=== PATIENT | male | born 1975 | race Hispanic/Latino ===

== ENCOUNTER 2017-01-10 22:37 | Emergency (ER) | payer BC ==
[2017-01-10 22:50] VITALS: RESP 18
[2017-01-10] MEDS ORDERED: Naproxen 550 mg Tab PO STA (23:12)
--- NOTE | 2017-01-10 23:13 | C.PDOC ---
History Of Present Illness 41 y/o male with a hx of head injury, c/o headache and nausea for a months. Patient changed his date of symptom onset from 3 days to a month. Denies visual changes, photophobia, or neck pain. No weakness, dizziness, or LOC. - HPI Time Seen by Provider: 01/10/17 23:06 Chief Complaint (Nursing): Trauma History Per: Patient History/Exam Limitations: no limitations Onset/Duration Of Symptoms: Days (3) Severity: Mild Recent travel outside of the [place]: No Additional History Per: Patient Past Medical History Reviewed: Historical Data, Nursing Documentation, Vital Signs Vital Signs: Last Vital Signs Temp 97.4 F L 01/10/17 22:46 Pulse 82 01/10/17 22:46 Resp 18 01/10/17 22:46 BP 136/84 01/10/17 22:46 Pulse Ox 98 01/11/17 00:11 Family History: States: Unknown Family Hx - Social History Hx Alcohol Use: No Hx Substance Use: No - Immunization History Hx Tetanus Toxoid Vaccination: No Hx Influenza Vaccination: No Hx Pneumococcal Vaccination: No Review Of Systems Except As Marked, All Systems Reviewed And Found Negative. Constitutional: Negative for: Other (Head injury) Eyes: Negative for: Vision Change, Other (Photophobia) Gastrointestinal: Positive for: Nausea Musculoskeletal: Negative for: Neck Pain Neurological: Positive for: Headache. Negative for: Weakness, Dizziness, Other (LOC) Physical Exam - Physical Exam Appears: Non-toxic, No Acute Distress Skin: Warm, Dry Head: Atraumatic, Normacephalic, Tenderness (Mild tenderness to the left temporoparietal area) Eye(s): bilateral: Normal Inspection, PERRL, EOMI Neck: Normal ROM, Supple Cardiovascular: Rhythm Regular, No Murmur Respiratory: Normal Breath Sounds, No Rales, No Rhonchi, No Wheezing Neurological/Psych: Oriented x3, Normal Speech, Normal Cognition, Normal Cranial Nerves, No Cerebellar Signs, Normal Motor, Normal Sensation, Other (No focal deficit) Gait: Steady ED Course And Treatment O2 Sat by Pulse Oximetry: 98 (RA) Pulse Ox Interpretation: Normal Medical Decision Making Medical Decision Making: Impression: * Headache and nausea for 3 days. Plans: * CT Head w/o * Anaprox Disposition Counseled Patient/Family Regarding: Diagnosis - Disposition Referrals: [facility] [Outside] Disposition: HOME/ ROUTINE Disposition Time: 00:09 Condition: STABLE Prescriptions: Naproxen [Naprosyn Tab] 375 mg PO Q6 #20 tab Instructions: Concussion (ED), Head Injury (ED) Forms: [facility] (Chadian) - POA Present On Arrival: None - Clinical Impression Clinical Impression: Concussion with no loss of consciousness, Contusion - Scribe Statement The provider has reviewed the documentation as recorded by the Scribe Saurabh quinteros All medical record entries made by the Oviibtayler were at my direction and personally dictated by me. I have reviewed the chart and agree that the record accurately reflects my personal performance of the history, physical exam, medical decision making, and the department course for this patient. I have also personally directed, reviewed, and agree with the discharge instructions and disposition.
[2017-01-10] MEDS ORDERED: Naproxen 550 mg Tab PO ONE (23:16)
--- NOTE | 2017-01-10 23:57 | CT ---
EXAM: CT Head Without Intravenous Contrast EXAM DATE/TIME: 01/10/2017 11:10 PM CLINICAL HISTORY: 41 years old, male; Pain; Headache; Additional info: Left sided head injury TECHNIQUE: Axial computed tomography images of the head/brain without intravenous contrast. All CT scans at this facility use one or more dose reduction techniques, viz.: automated exposure control; ma/kV adjustment per patient size (including targeted exams where dose is matched to indication; i.e. head); or iterative reconstruction technique. COMPARISON: No relevant prior studies available. FINDINGS: Small subcutaneous soft tissue swelling in posterior parietal region. Minimal prominence sulci for the patient's age. No intracranial hemorrhage. No extra axial collections. No intracranial edema. No fluid in the sinuses or mastoid air cells. No depressed fractures. IMPRESSION: No acute intracranial injury.
[2017-01-11 00:31] VITALS: BP 135/88; PULSE 74; TEMP 97.7; O2SAT 97
== END 2017-01-11 00:45 | disposition home or self-care (01) ==
LOC: C.ER 22:37
DX: S06.0X0D Concussion without loss of consciousness, subsequent encounter (principal); W22.8XXD Striking against or struck by other objects, subsequent encounter